=== PATIENT | male | born 1975 | race Caucasian/White ===

== ENCOUNTER 2019-01-05 06:07 | Day surgery (SDC) | payer OTHER ==
[~2019-01-05] VITALS: Ht 180.3 cm; Wt 100.5 kg
[2019-01-05] MEDS ORDERED: LIDOCAINE 1%-EPI 1:100K, 50ML ONE (06:30)
[2019-01-05 06:49] VITALS: BP 138/97
[2019-01-05] MEDS ORDERED: LACTATED RINGERS 1,000 ML IV SCH (06:58)
[2019-01-05] MEDS ORDERED: ACYC-113 PO ×2 (07:01)
[2019-01-05] MEDS ORDERED: DIPH25CA61 PO (07:01)
[2019-01-05] MEDS ORDERED: OMEP10CA4 PO (07:01)
[2019-01-05] MEDS ORDERED: KETOROLAC 30 MG/1 ML ONE (08:25)
[2019-01-05] MEDS ORDERED: FENTANYL PF 100 MCG/2ML ONE (08:26)
[2019-01-05] MEDS ORDERED: hydrALAzine 20 MG/ML, 1ML IV PRN (08:30)
[2019-01-05] MEDS ORDERED: ACETAMINOPHEN 325 MG TABLET PO PRN (08:30)
[2019-01-05] MEDS ORDERED: MEPERIDINE/PF 25MG/0.5ML IVPush PRN (08:30)
[2019-01-05] MEDS ORDERED: PROCHLORPERAZINE 5 MG/ML, 2ML IV PRN (08:30)
[2019-01-05] MEDS ORDERED: METOPROLOL 1 MG/ML, 5ML IV PRN (08:30)
[2019-01-05] MEDS ORDERED: PROMETHAZINE 25 MG/ML, 1ML IV PRN (08:30)
[2019-01-05] MEDS ORDERED: FENTANYL PF 100 MCG/2ML IV PRN (08:30)
[2019-01-05] MEDS ORDERED: OXYcodone 5 MG/5 ML ORAL.SOL UDC PO PRN (08:30)
[2019-01-05] MEDS ORDERED: DIPHENHYDRAMINE 50 MG/ML, 1ML IVPush PRN (08:30)
[2019-01-05] MEDS ORDERED: LABETALOL 5MG/ML, 20ML IV PRN (08:30)
[2019-01-05] MEDS ORDERED: HALOPERIDOL 5 MG/ML IV PRN (08:30)
[2019-01-05] MEDS ORDERED: HYDROmorphone 2 MG/ML, 1ML IVPush PRN (08:30)
[2019-01-05] MEDS ORDERED: ONDANSETRON 2MG/ML, 2ML ONE (08:54)
[2019-01-05] MEDS ORDERED: PROPOFOL 10 MG/ML, 20ML ONE (08:54)
[2019-01-05] MEDS ORDERED: CEFAZOLIN 1,000 MG ONE (08:54)
[2019-01-05] MEDS ORDERED: DEXAMETHASONE 4 MG/ML, 1ML ONE (08:54)
== END 2019-01-09 10:30 | disposition home or self-care (01) ==
LOC: OUT 06:07
PROVIDERS: ATTEND Otolaryngology
DX: R22.0 Localized swelling, mass and lump, head (principal); K21.9 Gastro-esophageal reflux disease without esophagitis
CPT/HCPCS: 11442; 12051; 88305; J0690; J1100; J1885; J2405; J2704; J3010; J7120

== ENCOUNTER 2020-01-11 17:22 | Emergency (ER) | payer OTHER ==
[~2020-01-11] VITALS: Ht 180.3 cm; Wt 92.0 kg
[~2020-01-11 17:22] MED LIST: ACYC-113 PO; DIPH25CA61 PO; OMEP10CA5 PO
[2020-01-11 18:03] VITALS: BP 152/126
== END 2020-01-11 18:29 | disposition home or self-care (01) ==
LOC: ED 18:07
DX: S39.012A Strain of muscle, fascia and tendon of lower back, initial encounter (principal); S29.012A Strain of muscle and tendon of back wall of thorax, initial encounter; S30.811A Abrasion of abdominal wall, initial encounter; S50.812A Abrasion of left forearm, initial encounter; S50.811A Abrasion of right forearm, initial encounter; V49.9XXA Car occupant (driver) (passenger) injured in unspecified traffic accident, initial encounter; W22.10XA Striking against or struck by unspecified automobile airbag, initial encounter; Y93.89 Activity, other specified; Y92.488 Other paved roadways as the place of occurrence of the external cause; Y99.8 Other external cause status
CPT/HCPCS: 99283